=== PATIENT | female | born 1945 | race Hispanic/Latino ===

== ENCOUNTER → 2020-06-13 | Day surgery (SDC) | payer MEDICARE, OTHER ==
[2020-06-08 10:48] LABS: BASOPHILS % 0.4 % (0.0-1.0); EOSINOPHILS % 0.7 % (0.0-6.0); HEMATOCRIT 43.1 % (34.2-44.1); HEMOGLOBIN 13.7 g/dL (12.0-16.0); LYMPHOCYTES # (AUTO) 0.9 (1.0-3.2); LYMPHOCYTES % 19.6 % (18.0-39.1); MEAN CORPUSCULAR HEMOGLOBIN 28.3 pg (28-32); MEAN CORPUSCULAR HGB CONC 31.8 g/dL (31-35); MONOCYTES # (AUTO) 0.4 (0.2-0.8); MONOCYTES % 8.4 % (4.4-11.3); NEUTROPHILS # (AUTO) 3.2 (2.1-6.9); NEUTROPHILS % 70.7 % (38.7-80.0); PLATELET COUNT 207 x10e3/uL (140-360); RED BLOOD COUNT 4.84 x10e6/uL (3.6-5.1); RED CELL DISTRIBUTION WIDTH 13.2 % (11.7-14.4)
[2020-06-08 11:10] LABS: ANION GAP 12.9 mmol/L (8-16); BLOOD UREA NITROGEN 17 mg/dL (7-26); BUN/CREATININE RATIO 23 (6-25); CALCIUM 9.9 mg/dL (8.4-10.2); CARBON DIOXIDE 29 mmol/L (22-29); CHLORIDE 104 mmol/L (98-107); CREATININE, SERUM 0.74 mg/dL (0.57-1.11); EST GLOMERULAR FILTRATION RATE > 60 ML/MIN (60-); GLUCOSE 91 mg/dL (74-118); POTASSIUM 3.9 mmol/L (3.5-5.1); SODIUM 142 mmol/L (136-145)
--- NOTE | 2020-06-08 11:34 | Diagnostic Imaging Report ---
EXAM: CHEST 2 VIEWS DATE: 06/08/2020 11:01 AM INDICATION: Preoperative evaluation COMPARISON: None FINDINGS: The trachea is midline. The lungs are symmetrically expanded without evidence for large focal consolidation, pneumothorax, or significant pleural effusion. The cardiomediastinal silhouette and pulmonary vasculature are within normal limits. No acute osseous abnormality is identified. Surgical clips noted at the level of the GE junction. The surrounding soft tissues are unremarkable. IMPRESSION: No acute cardiopulmonary process identified. Signed by: Dr. Stew Elkins MD on 06/08/2020 11:31 AM
[~2020-06-13] MED LIST: ATORVASTATIN CA20 MG PO; CEFAZOLIN SOD 1 GM/NS 50ML 100 ML IV ONE; DEXAMETHASONE SOD PHOS INJ 4 MG/ML VIAL ONE; EPHEDRINE SULFATE INJ 50 MG/ML VIAL ONE; EPINEPHRINE 1 MG/ML 30ML VIAL ONE; ETOMIDATE 2 MG/ML 10 ML INJ IV ONE; GABAPENTIN300 MG PO; GLYCOPYRROLATE INJ 0.2 MG/ML VIAL ONE; KETOROLAC TROMETHAMINE 30 MG/ML VIAL ONE; LOSARTAN POTAS100 MG PO; MELOXICAM7.5 MG PO; NEOSTIGMINE 1 MG/ML 10ML VIAL ONE; OMEPRAZOLE40 MG PO; ONDANSETRON HCL INJ 2MG/ML 2ML 2 MG/ML VIAL ONE; PROPOFOL IV EMULSION 10 MG/ML 20 ML VIAL ONE; ROCURONIUM BROMIDE 10 MG/ML 5ML VIAL IV ONE; ROPIVACAINE 0.5% 5 MG/ML 30 ML SDV ONE; SEVOFLURANE INHAL SOLN 250 ML PEN BTL ONE
[2020-06-13 08:30] VITALS: BP 160/71
--- NOTE | 2020-06-13 08:48 | Operative Report ---
DATE OF PROCEDURE: 06/13/2020 SURGEON: ZACK JACKMAN MD I spoke with the truck car and bus cleaner last evening and he states that surgery today will be fine. There is nothing that we can give to reverse Pradaxa. PLACE OF SURGERY: [facility]. HISTORY: Ms. Mcarthur is a 74-year-old female with ongoing pain of her left shoulder secondary to a left shoulder rotator cuff tear along with degenerative labral tear left shoulder along with shoulder impingement, AC arthrosis. The patient elected to proceed along with a diagnostic arthroscopy of her left shoulder. Risks and benefits of surgery had been outlined to her consisted but not limited to the following infection, blood loss, nerve, blood vessel, tendon injury, DVT, ongoing pain, and stiffness. The patient was seen and identified in the preoperative holding area. The left shoulder was marked by myself. The risks and benefits of surgery as outlined above were conveyed to her once again and she agrees. The patient was brought back to the operative suite. Time-out was taken for Ms. Vianey Mcarthur for a diagnostic arthroscopy of her left shoulder. All were in agreement including nursing staff, anesthesia, and myself. The patient was given a regional block in the preoperative holding area per anesthesia and in the operative suite, she was given general intubation anesthetic. Time-out was taken for Ms. Vianey Mcarthur for diagnostic arthroscopy of her left shoulder and all were in agreement including nursing staff, anesthesia, and myself. The patient was then given a successful general intubation anesthetic and then placed in the beach chair position. The left shoulder was fully exposed and then sterilely prepped and draped in the usual standard fashion. The shoulder was then inflated with 30 mL of saline. Posterior portal was made. Blunt trocar was inserted. Upon examination of the anterior compartment, the patient has significant amount of villonodular synovitis throughout. She has significant degenerative type 3 labral degenerative fraying of the labrum noted along with multiple rice and loose bodies throughout ranging from 2 to 5 mm in size. Two anterior as well as a lateral working portals were made to assist removal of the rice and loose bodies, which were removed using a straight grasper and shaver. Through the anterior portal, the labral debridement was carried out, taking the degenerative type 3 labral down to a stable rim. The patient has some marked fraying of the biceps tendon and Synovectomy was completed. She had some villonodular synovitis noted throughout the medial and the posterior compartment. A synovectomy was removed using 4.0 shaver removing the villonodular synovitis along the posterior and anterior compartments. Attention then turned to the rotator cuff tear. It was more of intrasubstance tear through and through noted. The edges of the tear were debrided. Examination to the subacromial space shows some significant marked narrowing of the subacromial space with underlying arthrosis and AC arthrosis and impingement. Through the posterior and lateral portal, an arthroscopic subacromial decompression was carried out using a 4.0 shaver and bur, and the arthroscopic subacromial decompression was completed i.e., acromioplasty. Using the same 4.0 shaver and a bur, an arthroscopic distal clavicle resection was carried out removing the degenerative AC meniscus in conjunction with the distal end of clavicle, approximately 1 cm in total. Copious irrigation was carried out. The impingement was markedly improved with significant space between the acromion and the rotator cuff tendon. Again, the rotator cuff tear was then tried. It was more of intrasubstance through and through tear. The rotator tear was identified and marked. A small incision was made over the tear. Blunt dissection was carried down to the deltoid. The rotator tear was then repaired [id number] using one Ethibond suture in interrupted fashion. Upon range of motion testing, the repair was found to be very stable. The defect was completely repaired. Copious irrigation was carried out on entire wound. First, second, and final counts found to be correct. Upon which time, the deep layer closure done using one Ethibond, 0 Vicryl, 2-0 Vicryl, skin reapproximated with divya. The patient was placed in Xeroform compressive dressing and subsequently transferred to PACU in stable condition with the shoulder immobilizer and abduction pillow applied. PREOPERATIVE DIAGNOSES: 1. Left shoulder labral tear. 2. Left shoulder rotator cuff tear. 3. Left shoulder impingement with AC arthrosis. 4. Left shoulder pain. POSTOPERATIVE DIAGNOSES: 1. Type 3 degenerative labral tear. 2. Villonodular synovitis of the left shoulder. 3. Multiple rice and loose bodies of the left shoulder. 4. 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 5. Left shoulder impingement AC arthrosis. 6. Complete intrasubstance rotator cuff tear of the left shoulder. PROCEDURES: 1. Diagnostic arthroscopy of the right shoulder with a type 3 labral debridement. 2. Diagnostic arthroscopy with arthroscopic villonodular synovectomy of the left shoulder. 3. Removal of rice and loose bodies of the left shoulder. 4. Arthroscopic subacromial decompression i.e., acromioplasty. 5. Arthroscopic distal clavicle resection i.e., Tete procedure. 6. Mini open rotator cuff repair of the left shoulder with repair of intrasubstance of rotator cuff tear, [id number]. ANESTHESIA: Regional block with general intubation anesthetic. ESTIMATED BLOOD LOSS: Less than 5 to 10 mL. SPECIMENS: Bones and soft tissue. COMPLICATIONS: None. CONDITION: Stable to PACU. The patient was seen in PACU. Dressings were clean and dry. Capillary refills are brisk. The intraoperative findings were reviewed and discussed with her family. Discharge wound care instructions were given. The patient has follow up in [facility] in 12 to 14 days. The patient discharged home with Gaylord as well as Keflex. Discharge wound care instructions were also discussed with nursing staff. MD TIFF DERAS/SERGIO /[id number]
== END | disposition home or self-care (01) ==
LOC: OR 05:12
PROVIDERS: ATTEND Orthopaedic Surgery
DX: S43.422A Sprain of left rotator cuff capsule, initial encounter (principal); S43.432A Superior glenoid labrum lesion of left shoulder, initial encounter; M19.012 Primary osteoarthritis, left shoulder; M75.52 Bursitis of left shoulder; M47.22 Other spondylosis with radiculopathy, cervical region; I10 Essential (primary) hypertension; K21.9 Gastro-esophageal reflux disease without esophagitis; R00.1 Bradycardia, unspecified; Z01.810 Encounter for preprocedural cardiovascular examination; Z01.812 Encounter for preprocedural laboratory examination; Z01.818 Encounter for other preprocedural examination; Z11.59 Encounter for screening for other viral diseases; M24.011 Loose body in right shoulder
CPT/HCPCS: 23410; 29824; 36415; 71046; 80048; 85025; 93005; A4467; J0690; J1100; J1885; J2405; J2704; J2710; J2795; U0002